=== PATIENT | male | born 1950 | race Caucasian/White ===

== ENCOUNTER → 2016-07-19 | Outpatient (CLI) | payer BC | END | disposition home or self-care (01) | LOC: PCVCIMAG 12:52 | PROVIDERS: ATTEND Internal Medicine | DX: I65.23 Occlusion and stenosis of bilateral carotid arteries (principal); E11.9 Type 2 diabetes mellitus without complications; R55 Syncope and collapse | CPT/HCPCS: 93306; 93880 ==

== ENCOUNTER → 2018-06-11 | Outpatient (CLI) | payer BC ==
--- NOTE | 2018-06-11 12:08 | PCVCIMAG ---
APPROVED REPORT Indications Stenosis Doppler Spectral Velocity Analysis PSV / EDVPSV / EDV ECA (R) 130 / 9 cm/sECA (L) 134 / 13 cm/s dICA (R) 79 / 24 cm/sdICA (L) 81 / 18 cm/s Mikey (R) 69 / 18 cm/smICA (L) 84 / 27 cm/s pICA (R) 100 / 10 cm/spICA (L) 89 / 18 cm/s Bulb (R) 67 / 16 cm/sBulb (L) 83 / 13 cm/s dCCA (R) 92 / 16 cm/sdCCA (L) 100 / 15 cm/s mCCA (R) 99 / 16 cm/smCCA (L) 97 / 15 cm/s Vert (R) 44 / 9 cm/sVert (L) 48 / 14 cm/s ICA/CCA 0.89 ICA/CCA 1.01 Basic Measurements Blood Pressure: Pulses: Right Left RightLeft Brachial(Sitting) 140/87ydFl575/82mmHgTemporal Real Time B-Mode Imaging Vert. (R)AntegradeVert. (L)Antegrade Findings The carotid bulb has moderate calcified plaque. The right proximal internal carotid artery shows <40% stenosis. The right common carotid artery shows no significant stenosis. The right external carotid artery shows no significant stenosis. The left carotid bulb has moderate plaque. The left proximal internal carotid artery shows <40% stenosis. The left common carotid artery shows no significant stenosis. The left external carotid artery shows no significant stenosis. Conclusion 1. Right internal carotid artery stenosis (<40%) 2. Left internal carotid artery stenosis (<40%) 3. Antegrade vertebral flow
--- NOTE | 2018-06-11 13:15 | PCVCIMAG ---
APPROVED REPORT Study performed: 06/11/2018 10:39:29 EXAM: Comprehensive 2D, Doppler, and color-flow Echocardiogram Patient Location: Echo lab Status: routine BSA: 2.34 HR: 62 bpmBP: 146/82 mmHg Rhythm: LBBB Other Information Study Quality: Adequate Risk Factors: Cardiac Risk Factors: Hyperlipidemia, HTN Indications CAD 2D Dimensions IVSd: 11.72 (7-11mm)LVOT Diam: 23.00 (18-24mm) LVDd: 48.51 mm PWd: 11.32 (7-11mm)Ascending Ao: 37.13 (22-36mm) LVDs: 32.55 (25-40mm) Left Atrium: 45.71 (27-40mm) Aortic Root: 31.18 mm LV Single Plane 4CH: 42.75 % LV Single Plane 2CH: 47.52 % Biplane EF: 44.9 % Volumes Left Atrial Volume (Systole) Single Plane 4CH: 39.87 mLSingle Plane 2CH: 50.98 mL LA ESV Index: 23.00 mL/m2 Aortic Valve AoV Peak Rojas.: 1.35 m/s AO Peak Gr.: 7.25 mmHgLVOT Max P.98 mmHg LVOT Max V: 0.86 m/s STELLA Vmax: 2.74 cm2 Mitral Valve E/A Ratio: 0.6 MV Decel. Time: 255.40 ms MV E Max Rojas.: 0.51 m/s MV A Rojas.: 0.92 m/s MV PHT: 74.07 ms IVRT: 48.44 ms TDI E/Lateral E': 6.38E/Medial E': 8.50 Medial E' Rojas.: 0.06 m/s Lateral E' Rojas.: 0.08 m/s Pulmonary Valve PV Peak Rojas.: 1.14 m/sPV Peak Gr.: 5.24 mmHg Pulmonary Vein P Vein S: 0.47 m/sP Vein A: 0.32 m/s P Vein D: 0.30 m/sP Vein A Dur.: 117.6 msec P Vein S/D Ratio: 1.57 Tricuspid Valve TR Peak Rojas.: 2.40 m/sRAP Estimate: 7.00 mmHg TR Peak Gr.: 22.97 mmHg PA Pressure: 30.00 mmHg Left Ventricle The left ventricle is normal size. There is normal LV segmental wall motion. Borderline concentric left ventricular hypertrophy. Left ventricular systolic function is mildly decreased. Discordant septal motion LVEF is 45%. Mild diastolic dysfunction is present (impaired relaxation pattern). Right Ventricle The right ventricle is normal size. The right ventricular systolic function is normal. Atria The left atrium size is normal. The right atrium size is normal. Aortic Valve The aortic valve is mildly sclerotic, trileaflet No aortic regurgitation is present. There is no aortic valvular stenosis. Mitral Valve The mitral valve is normal in structure. Mild mitral regurgitation. No evidence of mitral valve stenosis. Tricuspid Valve The tricuspid valve is normal in structure. Trace tricuspid regurgitation. Pulmonary artery pressure 30 mmHg. Pulmonic Valve The pulmonary valve is normal in structure. There is no pulmonic valvular regurgitation. Great Vessels The aortic root is normal in size. IVC is normal in size and collapses >50% with inspiration. Pericardium There is no pericardial effusion. <Conclusion> Left ventricular systolic function is mildly decreased. Discordant septal motion LVEF is 45%. Mild diastolic dysfunction The aortic valve is mildly sclerotic, trileaflet. No aortic regurgitation or stenosis. The mitral valve is normal in structure. Mild mitral regurgitation. Trace tricuspid regurgitation. Pulmonary artery pressure of 30 mmHg. There is no pericardial effusion.
== END | disposition home or self-care (01) ==
LOC: PCVCIMAG 08:57
PROVIDERS: ATTEND Internal Medicine
DX: I65.23 Occlusion and stenosis of bilateral carotid arteries (principal); I34.0 Nonrheumatic mitral (valve) insufficiency; I25.10 Atherosclerotic heart disease of native coronary artery without angina pectoris; E78.5 Hyperlipidemia, unspecified; I10 Essential (primary) hypertension
CPT/HCPCS: 93306; 93880